=== PATIENT | female | born 2000 | race Caucasian/White ===

== ENCOUNTER 2021-03-04 11:21 | Emergency (ER) | payer BC ==
[2021-03-04 12:12] LABS: Bilirubin Neg (Negative); Blood, Urine Negative (Negative); Clarity Clear (Clear); Glucose, Urine (Dipstick) Normal (Negative); Ketone, Urine Negative (Negative); Leukocyte 25 (Negative); Nitrite Negative (Negative); Protein, Urine (Dipstick) Negative (Neg-Trace); Specific Gravity, Urine 1.005 (1.002-1.036); Urobilinogen Normal mg/dL (Less than 2)
[2021-03-04 12:18] LABS: Pregnancy Test - Urine (BHCG) Negative (Negative)
[2021-03-04 12:19] LABS: Pregu Control Background? CLEAR/WHITE (CLR/WHITE); Pregu Control Bar Appear? YES (CONTROL BAR); Specific Gravity 1.005 (1.002-1.036)
[2021-03-04 12:24] LABS: Bacteria/HPF Rare-Few HPF (None Seen); RBC/HPF 0-3 HPF (0-3); Squamous Epithelial 0-3 HPF (0-3); WBC/HPF 0-3 HPF (0-3)
[2021-03-07 12:16] LABS: Chlamydia by PCR Not Detected (NotDetected); GC by PCR Not Detected (NotDetected)
== END 2021-03-04 12:54 | disposition home or self-care (01) ==
LOC: CSHERS 11:21
DX: N89.8 Other specified noninflammatory disorders of vagina (principal); F17.210 Nicotine dependence, cigarettes, uncomplicated
CPT/HCPCS: 81003; 81015; 81025; 87480; 87491; 87510; 87591; 87660; 99283

== ENCOUNTER 2022-04-28 09:53 | Outpatient (CLI) | payer BC, OTHER | END 2022-04-28 09:54 | disposition home or self-care (01) | LOC: CSHLAB 09:53 | PROVIDERS: ATTEND Advanced Practice Midwife | DX: Z20.822 Contact with and (suspected) exposure to COVID-19 (principal) | CPT/HCPCS: 87811 ==

== ENCOUNTER 2022-04-30 05:30 | Inpatient (IN) | payer BC, OTHER ==
[~2022-04-30 05:30] MED LIST: Butorphanol Tartrate 1 MG/ML VIAL SLOW IVP PRN; HYDROcodone/Acetaminophen 5/325 mg Tablet PO PRN; Ibuprofen 800 MG TAB PO PRN; Lidocaine 1% (PF) 30 ML VIAL SC PRN; NS w/ Oxytocin 30 units 500 ML IV SCH; Ondansetron PF 4 MG/2 ML Vial IVP PRN; Promethazine HCl 25 MG/ML VIAL IM PRN; hydrALAZINE 20 MG/ML VIAL SLOW IVP PRN
[2022-04-30] MEDS ORDERED: NS w/ Oxytocin 30 units 500 ML IV SCH (06:30)
[2022-04-30] MEDS ORDERED: Lactated Ringer's 1,000 ML IV SCH (06:30)
[2022-04-30 06:41] VITALS: BMI 39.4
[2022-04-30 06:45] LABS: Hemoglobin 11.2 g/dL (12.0-15.5); Mean Corpuscular HGB CONC 35.4 g/dL (32.0-36.0); Mean Corpuscular Hemoglobin 33.2 pg (27.0-33.0); Mean Corpuscular Volume 93.8 fl (81.6-98.3); Mean Platelet Volume 11.2 fl (7.4-10.4); Platelet Count 182 10x3/uL (150-450); RBC Distribution Width 12.6 % (11.5-14.5); Red Blood Cell (RBC) Count 3.37 10x6/uL (3.90-5.03); White Blood Cell (WBC) Count 12.8 10x3/uL (3.5-10.5)
[2022-04-30 07:18] LABS: Syphilis Antibody Nonreactive (Nonreactive); Syphilis Antibody Index 0.01 S/CO (<1.00 Non-Reactive)
[2022-04-30 07:20] LABS: Hep B Surf Ag Non-Reactive S/CO (NonReactive)
[2022-04-30] MEDS ORDERED: Moisturizing Cream (Eucerin) 113 GM JAR TOP PRN (09:49)
[2022-04-30] MEDS ORDERED: diphenhydrAMINE 50 MG/ML VIAL IVP PRN (09:49)
[2022-04-30] MEDS ORDERED: Acetaminophen 325 MG TAB PO PRN (09:49)
[2022-04-30] MEDS ORDERED: Promethazine HCl 25 MG/ML VIAL IM PRN (09:49)
[2022-04-30] MEDS ORDERED: ePHEDrine Sulfate 50 MG/10 ML VIAL SLOW IVP PRN (09:49)
[2022-04-30] MEDS ORDERED: Ondansetron PF 4 MG/2 ML Vial IVP PRN ×2 (09:49→21:26)
[2022-04-30] MEDS ORDERED: Naloxone HCl 0.4 mg/ml Vial IVP PRN ×2 (09:49)
[2022-04-30] MEDS ORDERED: Lactated Ringer's 500 ML IV PRN (09:49)
[2022-04-30] MEDS ORDERED: Fentanyl 2 mcg/Bup 0.1% Cadd 100 ML ONE (09:59)
[2022-04-30] MEDS ORDERED: Fentanyl 2 mcg/Bupivacaine 0.1% Cassette 100 ML EPIDURAL SCH (10:00)
[2022-04-30] MEDS ORDERED: Communication Order-Pharmacy FS SCH (10:00)
[2022-04-30] MEDS ORDERED: Fentanyl 100 MCG/2 ML VIAL ONE (11:45)
[2022-04-30] MEDS ORDERED: Benzocaine-Menthol 82.5 ML CAN TOP PRN (21:26)
[2022-04-30] MEDS ORDERED: HYDROcodone/Acetaminophen 5/325 mg Tablet PO PRN ×2 (21:26)
[2022-04-30] MEDS ORDERED: Milk Of Magnesia 30 ML UDCUP PO PRN (21:26)
[2022-04-30] MEDS ORDERED: Boostrix 0.5 ML (Tdap) VIAL IM ONE (21:26)
[2022-04-30] MEDS ORDERED: diphenhydrAMINE 25 MG CAP PO PRN (21:26)
[2022-04-30] MEDS ORDERED: Lanolin Ointment 7 GM TUBE TOP PRN (21:26)
[2022-04-30] MEDS ORDERED: Bisacodyl 10 MG SUPP PR PRN (21:26)
[2022-04-30] MEDS ORDERED: hydrALAZINE 20 MG/ML VIAL SLOW IVP PRN (21:26)
[2022-04-30] MEDS ORDERED: Docusate 100 MG CAP PO SCH (22:15)
[2022-05-01] MEDS: Ibuprofen 800 MG TAB PO SCH ×4 (05:30→21:12)
[2022-05-01] MEDS: Ferrous Sulfate 325 MG TAB PO SCH ×2 (08:04→17:29)
[2022-05-01] MEDS: Docusate 100 MG CAP PO SCH ×2 (08:40→21:12)
[2022-05-01] MEDS: Prenatal Vitamin 1 TAB PO SCH (08:40)
[2022-05-02] MEDS: Ibuprofen 800 MG TAB PO SCH (05:19)
[2022-05-02] MEDS: Ferrous Sulfate 325 MG TAB PO SCH (07:42)
[2022-05-02 08:21] VITALS: BP 109/59; TEMP 98.3
[2022-05-02] MEDS: Prenatal Vitamin 1 TAB PO SCH (09:21)
[2022-05-02] MEDS: Docusate 100 MG CAP PO SCH (09:21)
== END 2022-05-02 12:10 | disposition home or self-care (01) | DRG 807 ==
LOC: CSHLD 05:38 → CSHPP 21:00
PROVIDERS: ADMIT Obstetrics & Gynecology; ATTEND Obstetrics & Gynecology
PROC: 10E0XZZ Delivery of Products of Conception, External Approach (ICD-10-PCS; principal; 2022-04-30)
PROC: 10907ZC Drainage of Amniotic Fluid, Therapeutic from Products of Conception, Via Natural or Artificial Opening (ICD-10-PCS; 2022-04-30)
PROC: 10H07YZ Insertion of Other Device into Products of Conception, Via Natural or Artificial Opening (ICD-10-PCS; 2022-04-30)
PROC: 0HQ9XZZ Repair Perineum Skin, External Approach (ICD-10-PCS; 2022-04-30)
DX: O70.0 First degree perineal laceration during delivery (principal); Z37.0 Single live birth; Z3A.39 39 weeks gestation of pregnancy; O76 Abnormality in fetal heart rate and rhythm complicating labor and delivery; Z20.822 Contact with and (suspected) exposure to COVID-19
CPT/HCPCS: 36415; 51702; 85027; 86780; 86850; 86900; 86901; 87340; 87811; J2590

== ENCOUNTER 2024-03-24 07:38 | Emergency (ER) | payer BC, OTHER ==
[2024-03-24 08:55] LABS: #Basophils 0.04 10x3/uL (0.0-0.2); #Eosinphils 0.21 10x3/uL (0.0-0.5); #Monocytes 0.52 10x3/uL (0.0-1.1); #Neutrophils 6.25 10x3/uL (1.5-8.4); %Basophils 0.4 % (0.0-2.0); %Eosinophils 2.3 % (0.0-6.0); %Lymphocytes 23.5 % (18.0-47.0); %Monocytes 5.6 % (0.0-10.0); %Neutrophils 67.9 % (40.0-75.0); Hematocrit 38.8 % (34.9-44.5); Hemoglobin 14.2 g/dL (12.0-15.5); Mean Corpuscular HGB CONC 36.6 g/dL (32.0-36.0); Mean Corpuscular Hemoglobin 34.1 pg (27.0-33.0); Mean Corpuscular Volume 93.3 fL (81.6-98.3); Mean Platelet Volume 10.7 fL (7.4-10.4); Platelet Count 261 10x3/uL (150-450); RBC Distribution Width 11.9 % (11.5-14.5); Red Blood Cell (RBC) Count 4.16 10x6/uL (3.90-5.03); White Blood Cell (WBC) Count 9.2 10x3/uL (3.5-10.5)
== END 2024-03-24 09:35 | disposition home or self-care (01) ==
LOC: CSHERS 07:38
DX: N93.9 Abnormal uterine and vaginal bleeding, unspecified (principal); N92.0 Excessive and frequent menstruation with regular cycle; F17.210 Nicotine dependence, cigarettes, uncomplicated
CPT/HCPCS: 84702; 85025; 86900; 86901; 99284